=== PATIENT | male | born 1955 | race African-American/Black ===

== ENCOUNTER 2017-05-17 09:56 | Inpatient (IN) | payer MEDICAID ==
[~2017-05-17] VITALS: Ht 170.2 cm; Wt 85.7 kg
[2017-05-17 10:15] VITALS: BP 205/123
--- NOTE | 2017-05-17 10:36 | Diagnostic Imaging Report ---
Indications: Code stroke, slurred speech Technique: Continuous helical CT imaging of the brain was performed with nonionic exposure control on a Siemens sensation [address] scanner. Axial and coronal images were reconstructed at 5 mm slice thickness and interval. CTDI volume(s): 70 mGy Total DLP: 1333 mGy-cm Findings: Comparison: None Multiple small circumscribed foci of low attenuation are present in the bilateral basal ganglia regions. Most are chronic in appearance. A single lesion in the left globus pallidus is slightly less well-defined and slightly less hypoattenuating than the rest. Mild confluent low attenuation is present in the bilateral periventricular white matter. Ventricles, cisterns, and sulci are diffusely prominent. No evidence of mass or hemorrhage, mass effect, midline shift, hydrocephalus, or increased intracranial pressure. Bone window images are unremarkable. Visualized paranasal sinuses and mastoid air cells are clear. IMPRESSION: Bilateral basal ganglia region lacunar infarcts, most chronic in appearance. Single lesion on the left may be subacute. If clinically indicated, consider MRI for further evaluation.. Bilateral cerebral periventricular white matter low attenuation, nonspecific, likely chronic microvascular ischemic in nature Atrophy Critical results discussed with Dr. Anderson, physician, by telephone at time of this dictation The CT scanner at [facility] [place] is accredited by the [employer] and the scans are performed using protocols designed to limit radiation exposure to as low as reasonably achievable to attain images of sufficient resolution adequate for diagnostic evaluation.
[2017-05-17 10:39] VITALS: BP 175/98
[2017-05-17 10:40] LABS: BASOPHILS % (AUTO) 1.8 % (0.0-2.0); EOSINOPHILS % (AUTO) 1.9 % (0.0-3.0); LYMPHOCYTES % (AUTO) 26.3 % (20.0-45.0); MEAN CORPUSCULAR HEMOGLOBIN 30.7 PG (27.0-31.0); MEAN CORPUSCULAR HGB CONC 32.6 G/DL (32.0-36.0); MEAN CORPUSCULAR VOLUME 94 FL (80-99); MEAN PLATELET VOLUME 9.1 FL (6.5-10.1); MONOCYTES % (AUTO) 3.4 % (1.0-10.0); NEUTROPHILS % (AUTO) 66.6 % (45.0-75.0); PLATELET COUNT 328 K/UL (150-450); RED BLOOD COUNT 4.74 M/UL (4.70-6.10); RED CELL DISTRIBUTION WIDTH 11.6 % (11.6-14.8); WHITE BLOOD COUNT 10.7 K/UL (4.8-10.8)
[2017-05-17 10:54] LABS: PROTHROMBIN TIME 10.1 SEC (9.30-11.50); TROPONIN I < 0.30 ng/mL (<=0.30)
[2017-05-17] MEDS ORDERED: NKM (10:54)
[2017-05-17 10:55] LABS: ALANINE AMINOTRANSFERASE 8 U/L (3-41); ALBUMIN/GLOBULIN RATIO 1.3 (1.0-2.7); ALCOHOL 43 mg/dL; ANION GAP 11 (5-15); ASPARTATE AMINO TRANSFERASE 14 U/L (5-40); CARBON DIOXIDE 27 mEQ/L (20-30); CHLORIDE 100 mEQ/L (98-107); CHOLESTEROL 210 mg/dL (< 200); CHOLESTEROL/HDL RATIO 4.6 (3.3-4.4); CREATININE 1.1 mg/dL (0.7-1.2); GLOMERULAR FILTRATION RATE > 60 mL/min (>60); HEMOLYSIS 7; LDL CHOLESTEROL (CALC.) 132 mg/dL (60-99); POTASSIUM 3.9 mEQ/L (3.4-4.9); SODIUM 138 mEQ/L (135-145); TOTAL PROTEIN 7.4 g/dL (6.6-8.7)
[2017-05-17 11:05] LABS: CKMB 1.8 ng/mL (< 6.7)
[2017-05-17 11:50] VITALS: BP 182/91
[2017-05-17] MEDS ORDERED: Morphine Sulfate 2mg/ml Inj IVP PRN (12:00)
[2017-05-17] MEDS ORDERED: LORazepam Inj 2mg/ml 1ml IV PRN (12:00)
[2017-05-17] MEDS ORDERED: Miralax 17gm pkt ORAL PRN (12:00)
[2017-05-17] MEDS ORDERED: Nitroglycerin Subl 0.4mg tab (Bottle Of 25) SL PRN (12:00)
[2017-05-17] MEDS ORDERED: Promethazine/Codeine 5ml UD ORAL PRN (12:00)
[2017-05-17] MEDS ORDERED: Mylanta II UD 30ml ORAL PRN (12:00)
[2017-05-17] MEDS ORDERED: DuoNeb 0.5-3(2.5)mg/3ml neb HHN PRN (12:00)
--- NOTE | 2017-05-17 12:07 | Diagnostic Imaging Report ---
Indication: ] Technique: Single portable AP view of the chest. Findings: Comparison: None. Cardiac silhouette mildly enlarged. Linear densities left midlung, right lower lung. The bones and extra pulmonary soft tissues, cardiomediastinal silhouette, pulmonary vasculature, and pleural surfaces are unremarkable. IMPRESSION: Bilateral pulmonary subsegmental atelectasis versus scarring Cardiomegaly.
--- NOTE | 2017-05-17 12:31 | Neurology Progress Note ---
Objective Physical Exam Last Vital Signs Date Time Temp Pulse Resp B/P Pulse Ox O2 Delivery O2 Flow Rate FiO2 05/17/17 12:22 97.9 60 18 171/91 98 Room Air Laboratory Tests Test 05/17/17 10:30 White Blood Count 10.7 K/UL (4.8-10.8) Red Blood Count 4.74 M/UL (4.70-6.10) Hemoglobin 14.6 G/DL (14.2-18.0) Hematocrit 44.7 % (42.0-52.0) Mean Corpuscular Volume 94 FL (80-99) Mean Corpuscular Hemoglobin 30.7 PG (27.0-31.0) Mean Corpuscular Hemoglobin Concent 32.6 G/DL (32.0-36.0) Red Cell Distribution Width 11.6 % (11.6-14.8) Platelet Count 328 K/UL (150-450) Mean Platelet Volume 9.1 FL (6.5-10.1) Neutrophils (%) (Auto) 66.6 % (45.0-75.0) Lymphocytes (%) (Auto) 26.3 % (20.0-45.0) Monocytes (%) (Auto) 3.4 % (1.0-10.0) Eosinophils (%) (Auto) 1.9 % (0.0-3.0) Basophils (%) (Auto) 1.8 % (0.0-2.0) Prothrombin Time 10.1 SEC (9.30-11.50) Prothromb Time International Ratio 1.0 (0.9-1.1) Activated Partial Thromboplast Time 28 SEC (23-33) Sodium Level 138 mEQ/L (135-145) Potassium Level 3.9 mEQ/L (3.4-4.9) Chloride Level 100 mEQ/L (98-107) Carbon Dioxide Level 27 mEQ/L (20-30) Anion Gap 11 (5-15) Blood Urea Nitrogen 13 mg/dL (7-23) Creatinine 1.1 mg/dL (0.7-1.2) Estimat Glomerular Filtration Rate > 60 mL/min (>60) Glucose Level 129 mg/dL (74-106) H Calcium Level 9.0 mg/dL (8.6-10.2) Total Bilirubin 0.3 mg/dL (0.0-1.2) Aspartate Amino Transf (AST/SGOT) 14 U/L (5-40) Alanine Aminotransferase (ALT/SGPT) 8 U/L (3-41) Alkaline Phosphatase 58 U/L (40-129) Total Creatine Kinase 98 U/L (38-174) Creatine Kinase MB 1.8 ng/mL (< 6.7) Creatine Kinase MB Relative Index 1.8 Troponin I < 0.30 ng/mL (<=0.30) Total Protein 7.4 g/dL (6.6-8.7) Albumin 4.2 g/dL (3.5-5.2) Globulin 3.2 g/dL Albumin/Globulin Ratio 1.3 (1.0-2.7) Triglycerides Level 162 mg/dL (< 150) H Cholesterol Level 210 mg/dL (< 200) H LDL Cholesterol 132 mg/dL (60-99) H HDL Cholesterol 46 mg/dL (> 60) Cholesterol/HDL Ratio 4.6 (3.3-4.4) H Serum Alcohol 43 mg/dL Impression/Recommendations Problems: (1) Hypertensive urgency, malignant (2) s/p multiple lacunar strokes (3) r/o recent L MCA lacunar stroke (4) Hyperlipidemia Status: not improved Recommendations #[id number] TARSHA CORDOBA May 17, 2017 12:31
[2017-05-17] MEDS: D5 1/2NS 1,000 ML IV SCH (13:00)
[2017-05-17] MEDS ORDERED: Aspirin Baby 81mg NG SCH (13:00)
--- NOTE | 2017-05-17 13:51 | Emergency Room Report ---
History of Present Illness General Chief Complaint: Stroke Symptoms Source: Patient Present Illness HPI 61-year-old male presents ED for evaluation. Patient states that his blood pressure is high and he has a facial droop and slurred speech. States that symptoms started approximately 3 or 4 days ago. Patient states he is also intoxicated. Patient has history of hypertension but is not currently on medication. States he is stroke many years ago. Patient denies any drug use. Denies any chest pain or shortness of breath. No aggravating relieving factors. Denies any other associated symptoms Allergies: Coded Allergies: No Known Allergies (Unverified , 05/17/17) Patient History Past Medical History: HTN, CVA/TIA Past Surgical History: none Pertinent Family History: none Social History: Denies: alcohol use, drug use, smoking Immunizations: UTD Reviewed Nursing Documentation: PMH: Agreed, PSxH: Agreed Nursing Documentation-PMH Past Medical History: No History, Except For Hx Hypertension: Yes Hx Cerebrovascular Accident: Yes Review of Systems All Other Systems: negative except mentioned in HPI Physical Exam Vital Signs Date Time Temp Pulse Resp B/P Pulse Ox O2 Delivery O2 Flow Rate FiO2 05/17/17 09:59 97.9 59 18 205/123 98 Room Air Sp02 EP Interpretation: reviewed, normal General Appearance: no apparent distress, alert, GCS 15, non-toxic Head: normocephalic, atraumatic Eyes: bilateral eye PERRL, bilateral eye normal inspection ENT: hearing grossly normal, normal pharynx, no angioedema, normal voice Neck: full range of motion, supple/symm/no masses Respiratory: chest non-tender, lungs clear, normal breath sounds, speaking full sentences Cardiovascular #1: regular rate, rhythm, no edema Cardiovascular #2: 2+ carotid (R), 2+ carotid (L), 2+ radial (R), 2+ radial (L) , 2+ dorsalis pedis (R), 2+ dorsalis pedis (L) Gastrointestinal: normal bowel sounds, non tender, soft, non-distended, no guarding, no rebound Rectal: deferred Genitourinary: normal inspection, no CVA tenderness Musculoskeletal: back normal, gait/station normal, normal range of motion, non- tender Neurologic: alert, oriented x3, responsive, motor strength/tone normal, sensory intact, speech normal, facial droop, other - slurred speech Psychiatric: judgement/insight normal, memory normal, mood/affect normal, no suicidal/homicidal ideation Reflexes: 3+ bicep (R), 3+ bicep (L), 3+ tricep (R), 3+ tricep (L), 3+ knee (R) , 3+ knee (L) Skin: normal color, no rash, warm/dry, well hydrated Lymphatic: no adenopathy Medical Decision Making Diagnostic Impression: Primary Impression: CVA (cerebral vascular accident) Qualified Codes: I63.9 - Cerebral infarction, unspecified Additional Impressions: Hypertension Qualified Codes: I10 - Essential (primary) hypertension ETOH abuse ER Course Hospital Course 61-year-old M presents ED complaining of high BP, slurred speech with facial droop x 4 days Differential diagnoses include: ID/unstable angina, SVT/Vtach/AFib, CVA/TIA Clinical course Patient placed on stretcher. on urogynaecologist. After initial history and physical I ordered labs, EKG, chest x-ray, and CT head labs reviewed- electrolytes ok, troponins negative, no leukocytosis, Hb/Hct stable, ETOH 43 EKG - sinus bradycardia, no ischemic changes interpreted by me CT brain - no acute process noted Given aspirin in ED. given hydralazine for elevated BP Patient is not in therapeutic window for TPA. discussed with Dr. Villegas and he agreed to accept the patient to his service for further care and support I. I feel this is a highly complex case requiring extensive working including EKG/Rhythm strip, Xray/CT/US, Blood/urine lab work, repeat exams while in ED, and administration of strong opiates/narcotics for pain control, admission to hospital or close patient follow up. Diagnosis - CVA, hypertension, ETOH abuse admitted to telemetry in serious condition Labs Test 05/17/17 10:30 White Blood Count 10.7 K/UL (4.8-10.8) Red Blood Count 4.74 M/UL (4.70-6.10) Hemoglobin 14.6 G/DL (14.2-18.0) Hematocrit 44.7 % (42.0-52.0) Mean Corpuscular Volume 94 FL (80-99) Mean Corpuscular Hemoglobin 30.7 PG (27.0-31.0) Mean Corpuscular Hemoglobin Concent 32.6 G/DL (32.0-36.0) Red Cell Distribution Width 11.6 % (11.6-14.8) Platelet Count 328 K/UL (150-450) Mean Platelet Volume 9.1 FL (6.5-10.1) Neutrophils (%) (Auto) 66.6 % (45.0-75.0) Lymphocytes (%) (Auto) 26.3 % (20.0-45.0) Monocytes (%) (Auto) 3.4 % (1.0-10.0) Eosinophils (%) (Auto) 1.9 % (0.0-3.0) Basophils (%) (Auto) 1.8 % (0.0-2.0) Prothrombin Time 10.1 SEC (9.30-11.50) Prothromb Time International Ratio 1.0 (0.9-1.1) Activated Partial Thromboplast Time 28 SEC (23-33) Sodium Level 138 mEQ/L (135-145) Potassium Level 3.9 mEQ/L (3.4-4.9) Chloride Level 100 mEQ/L (98-107) Carbon Dioxide Level 27 mEQ/L (20-30) Anion Gap 11 (5-15) Blood Urea Nitrogen 13 mg/dL (7-23) Creatinine 1.1 mg/dL (0.7-1.2) Estimat Glomerular Filtration Rate > 60 mL/min (>60) Glucose Level 129 mg/dL (74-106) Calcium Level 9.0 mg/dL (8.6-10.2) Total Bilirubin 0.3 mg/dL (0.0-1.2) Aspartate Amino Transf (AST/SGOT) 14 U/L (5-40) Alanine Aminotransferase (ALT/SGPT) 8 U/L (3-41) Alkaline Phosphatase 58 U/L (40-129) Total Creatine Kinase 98 U/L (38-174) Creatine Kinase MB 1.8 ng/mL (< 6.7) Creatine Kinase MB Relative Index 1.8 Troponin I < 0.30 ng/mL (<=0.30) Total Protein 7.4 g/dL (6.6-8.7) Albumin 4.2 g/dL (3.5-5.2) Globulin 3.2 g/dL Albumin/Globulin Ratio 1.3 (1.0-2.7) Triglycerides Level 162 mg/dL (< 150) Cholesterol Level 210 mg/dL (< 200) LDL Cholesterol 132 mg/dL (60-99) HDL Cholesterol 46 mg/dL (> 60) Cholesterol/HDL Ratio 4.6 (3.3-4.4) Serum Alcohol 43 mg/dL EKG Diagnostic Results Rate: bradycardiac Rhythm: NSR ST Segments: no acute changes ASA given to the pt in ED: No Rhythm Strip Diag. Results EP Interpretation: yes Rhythm: NSR, no PVC's, no ectopy Chest X-Ray Diagnostic Results Chest X-Ray Ordered: Yes # of Views/Limited/Complete: 1 View Interpretation: no effusion, no pneumothorax, other - cardiomegaly. bilaeral atelectasis Indication: Chest Pain Impression: No acute disease Date Electronically Signed: May 17, 2017 Time Electronically Signed: 11:00 CT/MRI/US Diagnostic Results CT/MRI/US Diagnostic Results : Imaging Test Ordered: CT Head Impression bilateral basal ganglia luncar infarcts, mostly chronic, one subacute. Last Vital Signs Date Time Temp Pulse Resp B/P Pulse Ox O2 Delivery O2 Flow Rate FiO2 05/17/17 12:22 97.9 60 18 171/91 98 Room Air Status: improved Disposition: ADMITTED INPATIENT Condition: Serious Referrals: NOT CHOSEN IPA/,REFERRING (PCP) CUBA MARION M.D. May 17, 2017 13:51
--- NOTE | 2017-05-17 14:46 | Diagnostic Imaging Report ---
Indications: Cerebrovascular accident manifesting as slurred speech Technique: Sagittal and axial T1 weighted FLAIR, axial T2-weighted fat saturated fast spin echo propeller, T2-weighted FLAIR, T2*-weighted gradient echo, and diffusion sequences of the brain were performed without IV gadolinium administration. Findings: Comparison: Noncontrast CT brain performed earlier today 10 mm circumscribed ovoid focus of restricted diffusion is present in the right side of the erika at the level of the middle cerebellar peduncles. Associated mild T1 signal hypointensity, T2 signal hyperintensity. No associated susceptibility artifact on gradient echo images. Multiple small circumscribed foci of signal change/parenchymal loss are scattered throughout the bilateral basal ganglia and gann radiata regions. None demonstrates associated restricted diffusion. One lesion in the region of the posterior aspect of the left external capsule demonstrates a rim of susceptibility artifact on gradient echo images. No evidence of mass or acute hemorrhage, other signal abnormality, mass effect, midline shift, hydrocephalus, or increased intracranial pressure. No additional restricted diffusion. Central vascular flow voids are preserved. IMPRESSION: Acute lacunar infarct right side of erika Multiple bilateral basal ganglia and gann radiata small foci of parenchymal loss, most of which are compatible with old lacunar infarcts. Lesion in the posterior left external capsule compatible with chronic sequela of previous focal hemorrhage. Critical results discussed with Dr. Fernando, consulting neurologist, by telephone at time of this dictation
[2017-05-17 16:00] VITALS: BP 158/93
--- NOTE | 2017-05-17 16:02 | History and Physical ---
History of Present Illness General Date patient seen: May 17, 2017 Reason for Hospitalization: Stroke Symptoms Present Illness HPI 61-year-old male presents ED for evaluation of high blood pressure. He has a facial droop and slurred speech. States that symptoms started approximately 3 or 4 days ago prior to admission. He had stroke many years ago. Patient denies any drug use. Denies any chest pain or shortness of breath. He is admitted for possible CVA, and hypertensive emergency. Allergies: Coded Allergies: No Known Allergies (Unverified , 05/17/17) Medication History Scheduled No Known Medications* (NKM - No Known Medications*), 0 ., (Reported) Patient History Healthcare decision maker Resuscitation status Advanced Directive on File Past Medical/Surgical History Past Medical/Surgical History: (1) CVA (cerebral vascular accident) (2) Hypertension Review of Systems All Other Systems: negative except mentioned in HPI Physical Exam Lines, tubes and drains: peripheral HEENT: normocephalic, atraumatic Neck: non-tender, normal alignment, supple Respiratory/Chest: chest wall non-tender, lungs clear Cardiovascular/Chest: normal peripheral pulses, normal rate Abdomen: normal bowel sounds, non tender Genitourinary/Rectal: normal genital exam Extremities: normal range of motion, non-tender Skin Exam: normal pigmentation Last 24 Hour Vital Signs Date Time Temp Pulse Resp B/P Pulse Ox O2 Delivery O2 Flow Rate FiO2 05/17/17 12:22 97.9 60 18 171/91 98 Room Air 05/17/17 12:07 192/97 05/17/17 11:50 55 18 182/91 98 Room Air 05/17/17 10:39 77 18 175/98 98 Room Air 05/17/17 10:15 97.9 18 205/123 98 Room Air 05/17/17 09:59 97.9 59 18 205/123 98 Room Air Laboratory Tests Test 05/17/17 10:30 White Blood Count 10.7 K/UL (4.8-10.8) Red Blood Count 4.74 M/UL (4.70-6.10) Hemoglobin 14.6 G/DL (14.2-18.0) Hematocrit 44.7 % (42.0-52.0) Mean Corpuscular Volume 94 FL (80-99) Mean Corpuscular Hemoglobin 30.7 PG (27.0-31.0) Mean Corpuscular Hemoglobin Concent 32.6 G/DL (32.0-36.0) Red Cell Distribution Width 11.6 % (11.6-14.8) Platelet Count 328 K/UL (150-450) Mean Platelet Volume 9.1 FL (6.5-10.1) Neutrophils (%) (Auto) 66.6 % (45.0-75.0) Lymphocytes (%) (Auto) 26.3 % (20.0-45.0) Monocytes (%) (Auto) 3.4 % (1.0-10.0) Eosinophils (%) (Auto) 1.9 % (0.0-3.0) Basophils (%) (Auto) 1.8 % (0.0-2.0) Prothrombin Time 10.1 SEC (9.30-11.50) Prothromb Time International Ratio 1.0 (0.9-1.1) Activated Partial Thromboplast Time 28 SEC (23-33) Sodium Level 138 mEQ/L (135-145) Potassium Level 3.9 mEQ/L (3.4-4.9) Chloride Level 100 mEQ/L (98-107) Carbon Dioxide Level 27 mEQ/L (20-30) Anion Gap 11 (5-15) Blood Urea Nitrogen 13 mg/dL (7-23) Creatinine 1.1 mg/dL (0.7-1.2) Estimat Glomerular Filtration Rate > 60 mL/min (>60) Glucose Level 129 mg/dL (74-106) H Calcium Level 9.0 mg/dL (8.6-10.2) Total Bilirubin 0.3 mg/dL (0.0-1.2) Aspartate Amino Transf (AST/SGOT) 14 U/L (5-40) Alanine Aminotransferase (ALT/SGPT) 8 U/L (3-41) Alkaline Phosphatase 58 U/L (40-129) Total Creatine Kinase 98 U/L (38-174) Creatine Kinase MB 1.8 ng/mL (< 6.7) Creatine Kinase MB Relative Index 1.8 Troponin I < 0.30 ng/mL (<=0.30) Total Protein 7.4 g/dL (6.6-8.7) Albumin 4.2 g/dL (3.5-5.2) Globulin 3.2 g/dL Albumin/Globulin Ratio 1.3 (1.0-2.7) Triglycerides Level 162 mg/dL (< 150) H Cholesterol Level 210 mg/dL (< 200) H LDL Cholesterol 132 mg/dL (60-99) H HDL Cholesterol 46 mg/dL (> 60) Cholesterol/HDL Ratio 4.6 (3.3-4.4) H Phospholipids Level Pending Vitamin B12 Level 331 pg/mL (211-946) Serum Alcohol 43 mg/dL Height (Feet): 5 Height (Inches): 7.00 Weight (Pounds): 189 Medications Current Medications Medications (Trade) Dose Ordered Sig/Claudio Route PRN Reason Start Time Stop Time Status Last Admin Dose Admin Acetaminophen (Tylenol) 650 mg Q4H PRN ORAL fever 05/17/17 12:00 06/16/17 11:59 Al Hydroxide/Mg Hydroxide (Mylanta II) 30 ml Q6H PRN ORAL dyspepsia 05/17/17 12:00 06/16/17 11:59 Albuterol/ Ipratropium (DuoNeb 0.5-3(2.5)mg/3ml) 3 ml Q4H PRN HHN Shortness of Breath 05/17/17 12:00 05/22/17 11:59 Aspirin (ASA) 81 mg DAILY NG 05/17/17 13:00 06/16/17 12:59 05/17/17 13:00 Atorvastatin Calcium (Lipitor) 10 mg BEDTIME ORAL 05/17/17 21:00 06/16/17 20:59 Clonidine HCl (Catapres) 0.1 mg Q4H PRN ORAL For High Blood Pressure 05/17/17 12:00 06/16/17 11:59 Dextrose (Dextrose 50%) STAT PRN IV Hypoglycemia 05/17/17 12:00 06/16/17 11:59 Dextrose/Sodium Chloride (D5 0.45% NS) 1,000 ml @ 50 mls/hr Q20H IV 05/17/17 13:00 06/16/17 12:59 05/17/17 13:00 Heparin Sodium (Porcine) (Heparin 5000 units/ml) 5,000 units EVERY 12 HOURS SUBQ 05/17/17 21:00 06/16/17 20:59 Lorazepam (Ativan 2mg/ml 1ml) 0.5 mg Q4H PRN IV For Anxiety 05/17/17 12:00 05/24/17 11:59 Morphine Sulfate (Morphine Sulfate) 1 mg Q4H PRN IVP For Pain 7-10 05/17/17 12:00 05/24/17 11:59 Nitroglycerin (Ntg) 0.4 mg Q5M X 3 DOSES PRN SL Prn Chest Pain 05/17/17 12:00 06/16/17 11:59 Ondansetron HCl (Zofran) 4 mg Q6H PRN IVP Nausea & Vomiting 05/17/17 12:00 06/16/17 11:59 Polyethylene Glycol (Miralax) 17 gm HSPRN PRN ORAL Constipation 05/17/17 12:00 06/16/17 11:59 Promethazine HCl/ Codeine (Phenergan with Codeine) 5 ml Q4H PRN ORAL For Cough 05/17/17 12:00 06/16/17 11:59 Temazepam (Restoril) 15 mg HSPRN PRN ORAL Insomnia 05/17/17 12:00 05/24/17 11:59 Assessment/Plan Problem List: (1) CVA (cerebral vascular accident) ICD Codes: I63.9 - Cerebral infarction, unspecified SNOMED: 582072462 Qualifiers: Qualified Codes: I63.9 - Cerebral infarction, unspecified (2) Hypertensive urgency, malignant ICD Codes: I16.0 - Hypertensive urgency SNOMED: 679372098 (3) Stroke-like episode ICD Codes: I63.9 - Cerebral infarction, unspecified SNOMED: 466761747 Assessment/Plan telemetry monitoring control bp Neuro evaluation cardiac evaluation ZENIA TRUONG May 17, 2017 16:02
[2017-05-17 20:00] VITALS: BP 171/102
--- NOTE | 2017-05-17 21:00 | Consultation ---
DATE OF CONSULTATION: 05/17/2017 NEUROLOGICAL CONSULTATION CONSULTING PHYSICIAN: Anselmo Fernando M.D. REQUESTING PHYSICIAN: Gorge Villegas M.D. LOCATION: Emergency room. HISTORY OF PRESENT ILLNESS: The patient is a 61-year-old male seen in neurological consultation to evaluate the progressive neurological abnormalities in the last two to three days. The patient informed me that the over the last three days with no obvious reason, he noticed gait instability and weakness in the both lower extremities, generalized weakness, clumsy both hands, droopy left face, slurred speech which were fluctuating on and of, the patient become very concerns so decided to came to the emergency room. He was afebrile. His vital signs on admission included blood pressure of 205/123. The patient was started on treatment with hydralazine, albuterol, nitro, Zofran as needed, promethazine as needed, intravenous fluids, and Restoril. His blood pressure while under observation dropped down to 192/97. Initial assessment also included chest x-ray, bilateral pulmonary subsegmental atelectasis versus scarring, cardiomegaly. CAT scan of the brain revealed multiple foci of low attenuation bilateral basal ganglia, chronic in appearance with single lesion in the left globus pallidus, slightly less defined, subacute lacunar stroke. Lab work included serum alcohol of 43. CBC studies within normal limits. Coagulation panel normal. Chemistry panel was unremarkable except blood sugar 129, elevated lipid panel with cholesterol 210, LDL 132. Since admission until present, there were no further changes in his status, the patient now informs me that at age of 47 he had acute stroke. He was taken to [facility]. MRI of the brain revealed small stroke, but this resulted in the limping to the right side, somewhat slurred speech and facial droop which later improved. The patient also indicate that accidentally about six months ago he was detected to have high blood pressure. For some reason, no treatment was given to him, he had another measurement of blood pressure recently, also was elevated. The patient came to this facility with no treatment receiving. 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 SOCIAL HISTORY: The patient is homeless but stays often with his mother who is chronically ill or stays with his girlfriend or other people. He is a smoker one to two cigars per day. He likes beers 3 to 4 daily but denies being drunk. Denies drug abuse. The patient indicated he would like to claim social security for disability. REVIEW OF SYSTEMS: Generalized weakness but denies headache, dizziness. Denies swallowing issues. No aches and pains in his upper or mid lower back. No urine or bowel incontinence. Denies chest pain or palpitations. No respiratory problems. The patient remained with generalized weakness and left facial droop, somewhat slurred speech gait, wobbly gait. PHYSICAL EXAMINATION: GENERAL: A well-developed, well-nourished man, not in acute distress. VITAL SIGNS: Blood pressure 182/97, heart rate of 55, temperature 97.9, afebrile. HEENT: Head normocephalic. No evidence of trauma. Eyes, ears, and throat are clear. NECK: Supple. No meningeal signs. MUSCULOSKELETAL: Unremarkable. There is no deformities. Peripheral pulses 1+ symmetric. MENTAL STATUS EXAMINATION: The patient is alert and oriented x3. His speech is fluent with no evidence of aphasia or apraxia with slightly slurred speech. CRANIAL NERVE II: Pupils both responding to light and accommodation. Extraocular movement intact. No nystagmus. CRANIAL NERVE V: Normal corneal responses. CRANIAL NERVE VII: Droop left nasolabial fold. CRANIAL NERVE VIII: Grossly normal hearing. CRANIAL NERVES IX THROUGH XII: Tongue is in midline. Symmetric palate elevation. MOTOR EXAMINATION: Revealed slight increased tone both lower extremities. Strength 5/5 all extremities. Deep reflexes 1+ both biceps, triceps, and brachioradialis but 3+ both knee jerks, ankle jerks, plantar response is mute. SENSORY EXAMINATION: Normal to pinprick and light touch. Gait is unstable but with turns was somewhat wobbly. IMPRESSION: 1. Hypertensive emergency. 2. Extensive ischemic cerebrovascular disease with multiple lacunar strokes, rule out subacute left middle cerebral artery distribution stroke. 3. Hyperlipidemia. 4. Social alcohol use. 5. Nicotine dependency. RECOMMENDATION: 1. Carotid duplex study. 2. MRI of the brain. 3. Coagulation panel. 4. B12, folate, thyroid function. 5. Start on aspirin 81 mg daily. 6. Start on Lipitor 10 mg daily. 7. Get PT/OT, speech therapy assessment. 8. A 2D echocardiogram. Thank you for allowing me to see this interesting patient in neurological consultation. Anselmo Fernando M.D. DR: Cricket JOB#: [id number] CC:
[2017-05-17] MEDS: Heparin 5000 units/ml inj SUBQ SCH (21:13)
--- NOTE | 2017-05-17 22:30 | Consultation ---
DATE OF CONSULTATION: 05/17/2017 CARDIOLOGY CONSULTATION CONSULTING PHYSICIAN: Galo Feng M.D. REFERRING PHYSICIAN: Gorge Villegas M.D. REASON FOR CONSULTATION: Management of accelerated hypertension. HISTORY OF PRESENT ILLNESS: The patient is a very pleasant 61-year-old black Bulgarian, who presents to the emergency department for evaluation of facial droop and slurred speech. Apparently, the patient's blood pressure was elevated. He has a history of prior stroke that caused the facial asymmetry as well as facial droop in the right face and right hemiparesis. At this time, the patient started to feel numbness creeping up from the right knee towards the hip. He also noticed some slurring of the speech. Initial blood pressure on arrival to the emergency department 205/123 mmHg and heart rate was 59. The patient is admitted to telemetry for further evaluation and management of malignant hypertension. The patient denies any chest pain or shortness of breath. Denies any headache, lightheadedness, or dizziness. PAST MEDICAL HISTORY: Hypertension, CVA/TIA, right hemiparesis, as well as noncompliance with medication. PAST SURGICAL HISTORY: None. MEDICATIONS: List of medication, the patient is currently on no medication. ALLERGIES: No known drug allergies. SOCIAL HISTORY: Denies any alcohol, tobacco, or illicit drug use. FAMILY HISTORY: No premature coronary artery disease in first-degree relatives. REVIEW OF SYSTEMS: HEENT: Denies any headache, diplopia, or blurred vision. Constitutional: Denies any fever, chills, night sweats, or weight loss. Cardiovascular: Denies any chest pain, shortness breath, PND, orthopnea, or leg swelling. Pulmonary: Denies any cough, hemoptysis, or wheezing. Gastrointestinal: Denies any nausea, vomiting, diarrhea, constipation, abdominal pain, or GI bleed. Genitourinary: Denies any hematuria, dysuria, or incontinence. Neurology: Some slurring of speech. There is numbness in the right leg above the knee and residual numbness below the right knee. PHYSICAL EXAMINATION: VITAL SIGNS: Blood pressure was 205/123, respiration of 18, pulse of 59, and temperature of 97.9 degrees Fahrenheit. GENERAL: The patient is a very unfortunate 61-year-old gentleman, in no apparent respiratory distress. Alert, awake, and oriented x4. HEENT: Atraumatic and normocephalic. Anicteric. Pupils are equal, round, and reactive to light and accommodation. Extraocular muscles intact. NECK: JVP is less than 5 cm. No carotid bruit. Carotid upstrokes 2+ bilaterally. CARDIOVASCULAR: Normal S1 and loud S2. No murmurs, gallops, or rubs. PMI is at fourth intercostal space at the midclavicular line. LUNGS: Clear to auscultation bilaterally. ABDOMEN: Soft, nontender, and nondistended. No hepatosplenomegaly. Positive bowel sounds. EXTREMITIES: No evidence of edema, clubbing, or cyanosis. LABORATORY AND DIAGNOSTIC FINDINGS: WBC 10.7, hemoglobin 14.6, hematocrit of 44.7, and platelet count is 328,000. Sodium 138, potassium 3.9, chloride 100, bicarbonate 27, BUN of 13, creatinine 1.1, and glucose 129. Calcium is 9.0. Troponin I less than 0.3. Triglyceride 162, total cholesterol is 210, LDL is 132, and HDL of 46. INR is 1.0. Serum alcohol is 43. A 12-lead electrocardiogram shows sinus bradycardia with a rate of 55 with septal wall infarct, age indeterminate. No acute ST and T-wave abnormalities. Chest x-ray shows bilateral pulmonary subsegmental atelectasis versus scarring with presence of cardiomegaly in particular left ventricular prominence. CT of the head showed bilateral basal ganglia region lacunar infarcts, chronic in appearance. Single lesion on the left may be is subacute. MRI of head shows acute lacunar infarct on right side of erika, multiple bilateral basilar ganglion gann radiata small foci of parenchymal loss compatible with old lacunar infarcts, and lesion in the posterior left external capsule, chronic sequelae of previous focal hemorrhage. ASSESSMENT AND PLAN: 1. Hypertensive emergency. The patient requires medication to keep the blood pressure around 140 to 160 mmHg. Rapid slow loading blood pressure may have deleterious effect on the cerebral blood flow. It is quite hard to achieve the aforementioned blood pressure using oral agents. I would have to start the patient on a very low dose oral medication with tight monitoring of blood pressure on telemetry unit. The latest blood pressure at this time is 158/93 mmHg, which is relatively acceptable. Most of the patient's with hypertensive emergency require an intensive care unit. The patient is currently asymptomatic. There is no evidence of encephalopathy. 2. Noncompliance with the blood pressure medication. 3. Prior history of hemorrhagic cerebrovascular accident and cerebellar infarct. A 2D echocardiography has shown normal left ventricular ejection fraction at 60%. A 12-lead electrocardiogram does not suggest embolic source from the heart. We would like to obtain a lipid panel and the coronary artery disease risk stratification in this patient. I would like to thank, Dr. Villegas, for allowing me to participate in the care of this patient. Galo Feng M.D. DR: MARIANA JOB#: [id number] CC:
[2017-05-18] VITALS (7 sets, daily range): BP systolic 140–167; BP diastolic 79–102
[2017-05-18 08:05] LABS: BASOPHILS % (AUTO) 1.2 % (0.0-2.0); EOSINOPHILS % (AUTO) 2.6 % (0.0-3.0); LYMPHOCYTES % (AUTO) 29.5 % (20.0-45.0); MEAN CORPUSCULAR HEMOGLOBIN 32.6 PG (27.0-31.0); MEAN CORPUSCULAR HGB CONC 35.6 G/DL (32.0-36.0); MEAN CORPUSCULAR VOLUME 92 FL (80-99); MEAN PLATELET VOLUME 8.9 FL (6.5-10.1); MONOCYTES % (AUTO) 5.8 % (1.0-10.0); NEUTROPHILS % (AUTO) 60.9 % (45.0-75.0); PLATELET COUNT 320 K/UL (150-450); RED BLOOD COUNT 4.79 M/UL (4.70-6.10); RED CELL DISTRIBUTION WIDTH 11.6 % (11.6-14.8); WHITE BLOOD COUNT 13.4 K/UL (4.8-10.8)
[2017-05-18 08:11] LABS: PROTHROMBIN TIME 10.4 SEC (9.30-11.50)
[2017-05-18 08:19] LABS: ALANINE AMINOTRANSFERASE 11 U/L (3-41); ALBUMIN/GLOBULIN RATIO 1.1 (1.0-2.7); ANION GAP 16 (5-15); ASPARTATE AMINO TRANSFERASE 15 U/L (5-40); CALCIUM 8.7 mg/dL (8.6-10.2); CARBON DIOXIDE 24 mEQ/L (20-30); CHLORIDE 101 mEQ/L (98-107); CHOLESTEROL 201 mg/dL (< 200); CHOLESTEROL/HDL RATIO 4.9 (3.3-4.4); CREATININE 1.1 mg/dL (0.7-1.2); GLOMERULAR FILTRATION RATE > 60 mL/min (>60); HEMOLYSIS 6; LDL CHOLESTEROL (CALC.) 116 mg/dL (60-99); POTASSIUM 4.1 mEQ/L (3.4-4.9); SODIUM 141 mEQ/L (135-145); TOTAL PROTEIN 7.2 g/dL (6.6-8.7)
[2017-05-18] MEDS: Aspirin Baby 81mg ORAL SCH (08:58)
[2017-05-18] MEDS: Heparin 5000 units/ml inj SUBQ SCH ×2 (08:59→20:47)
[2017-05-18] MEDS: D5 1/2NS 1,000 ML IV SCH (09:00)
--- NOTE | 2017-05-18 11:18 | Pulmonology Progress Note ---
Assessment/Plan Problems: (1) Hypertensive urgency, malignant (2) CVA (cerebral vascular accident) (3) Acute CVA (cerebrovascular accident) Assessment/Plan improving no deficits start oral hypertensive agents dc probably tomorrow Subjective ROS Limited/Unobtainable: No Constitutional: Reports: no symptoms HEENT: Repors: no symptoms Respiratory: Reports: no symptoms Allergies: Coded Allergies: No Known Allergies (Unverified , 05/17/17) Objective Last 24 Hour Vital Signs Date Time Temp Pulse Resp B/P Pulse Ox O2 Delivery O2 Flow Rate FiO2 05/18/17 08:28 97.7 58 18 158/102 97 Room Air 05/18/17 08:00 57 05/18/17 06:52 167/95 05/18/17 06:45 97.7 56 18 167/95 95 Room Air 05/18/17 04:00 56 05/18/17 04:00 97.0 58 18 156/89 99 Room Air 05/18/17 00:00 96.9 70 20 158/79 99 Room Air 05/18/17 00:00 57 05/17/17 20:00 97.7 69 20 171/102 95 Room Air 05/17/17 20:00 63 05/17/17 16:00 80 05/17/17 16:00 97.5 61 18 158/93 98 Room Air 05/17/17 12:22 97.9 60 18 171/91 98 Room Air 05/17/17 12:07 192/97 05/17/17 11:50 55 18 182/91 98 Room Air Intake and Output 05/17/17 05/18/17 19:00 07:00 Intake Total 700 ml 240 ml Output Total 1200 ml Balance -500 ml 240 ml Intake Oral 400 ml 240 ml IV Total 300 ml Output Urine Total 1200 ml # Voids 2 2 HEENT: normocephalic, atraumatic Respiratory/Chest: chest wall non-tender, lungs clear Cardiovascular: normal peripheral pulses, normal rate Abdomen: normal bowel sounds, soft, non tender Genitourinary: normal external genitalia Skin: no rash Neurologic/Psychiatric: bilingual sales assistant II-XII grossly normal, abnormal gait Laboratory Tests 05/18/17 07:00: White Blood Count 13.4H, Red Blood Count 4.79, Hemoglobin 15.6, Hematocrit 43.9 , Mean Corpuscular Volume 92, Mean Corpuscular Hemoglobin 32.6H, Mean Corpuscular Hemoglobin Concent 35.6, Red Cell Distribution Width 11.6, Platelet Count 320, Mean Platelet Volume 8.9, Neutrophils (%) (Auto) 60.9, Lymphocytes (% ) (Auto) 29.5, Monocytes (%) (Auto) 5.8, Eosinophils (%) (Auto) 2.6, Basophils ( %) (Auto) 1.2, Prothrombin Time 10.4, Prothromb Time International Ratio 1.0, Activated Partial Thromboplast Time 29, Sodium Level 141, Potassium Level 4.1, Chloride Level 101, Carbon Dioxide Level 24, Anion Gap 16H, Blood Urea Nitrogen 11, Creatinine 1.1, Estimat Glomerular Filtration Rate > 60, Glucose Level 101, Calcium Level 8.7, Total Bilirubin 0.7, Aspartate Amino Transf (AST/SGOT) 15, Alanine Aminotransferase (ALT/SGPT) 11, Alkaline Phosphatase 58, Total Protein 7.2, Albumin 3.8, Globulin 3.4, Albumin/Globulin Ratio 1.1, Triglycerides Level 218H, Cholesterol Level 201H, LDL Cholesterol 116H, HDL Cholesterol 41, Cholesterol/HDL Ratio 4.9H, Thyroid Stimulating Hormone (TSH) 2.530 Current Medications Medications (Trade) Dose Ordered Sig/Claudio Route PRN Reason Start Time Stop Time Status Last Admin Dose Admin Acetaminophen (Tylenol) 650 mg Q4H PRN ORAL fever 05/17/17 12:00 06/16/17 11:59 Al Hydroxide/Mg Hydroxide (Mylanta II) 30 ml Q6H PRN ORAL dyspepsia 05/17/17 12:00 06/16/17 11:59 Albuterol/ Ipratropium (DuoNeb 0.5-3(2.5)mg/3ml) 3 ml Q4H PRN HHN Shortness of Breath 05/17/17 12:00 05/22/17 11:59 Aspirin (ASA) 81 mg DAILY ORAL 05/18/17 09:00 06/17/17 08:59 05/18/17 08:58 Atorvastatin Calcium (Lipitor) 10 mg BEDTIME ORAL 05/17/17 21:00 06/16/17 20:59 05/17/17 21:12 Clonidine HCl (Catapres) 0.1 mg Q4H PRN ORAL For High Blood Pressure 05/17/17 12:00 06/16/17 11:59 05/18/17 06:52 Dextrose (Dextrose 50%) STAT PRN IV Hypoglycemia 05/17/17 12:00 06/16/17 11:59 Dextrose/Sodium Chloride (D5 0.45% NS) 1,000 ml @ 50 mls/hr Q20H IV 05/17/17 13:00 06/16/17 12:59 05/18/17 09:00 Heparin Sodium (Porcine) (Heparin 5000 units/ml) 5,000 units EVERY 12 HOURS SUBQ 05/17/17 21:00 06/16/17 20:59 05/18/17 08:59 Lorazepam (Ativan 2mg/ml 1ml) 0.5 mg Q4H PRN IV For Anxiety 05/17/17 12:00 05/24/17 11:59 Morphine Sulfate (Morphine Sulfate) 1 mg Q4H PRN IVP For Pain 7-10 05/17/17 12:00 05/24/17 11:59 Nitroglycerin (Ntg) 0.4 mg Q5M X 3 DOSES PRN SL Prn Chest Pain 05/17/17 12:00 06/16/17 11:59 Ondansetron HCl (Zofran) 4 mg Q6H PRN IVP Nausea & Vomiting 05/17/17 12:00 06/16/17 11:59 Polyethylene Glycol (Miralax) 17 gm HSPRN PRN ORAL Constipation 05/17/17 12:00 06/16/17 11:59 Promethazine HCl/ Codeine (Phenergan with Codeine) 5 ml Q4H PRN ORAL For Cough 05/17/17 12:00 06/16/17 11:59 Temazepam (Restoril) 15 mg HSPRN PRN ORAL Insomnia 05/17/17 12:00 05/24/17 11:59 ZENIA TRUONG May 18, 2017 11:18
[2017-05-18] MEDS: Lisinopril 20mg tab ORAL SCH (11:39)
--- NOTE | 2017-05-18 15:10 | Cardiology Report ---
APPROVED REPORT EKG Measurement Heart [id number] DC [id number] [id number] Sinus bradycardia Septal infarct, age undetermined Abnormal ECG
--- NOTE | 2017-05-18 15:18 | Neurology Progress Note ---
Interim History Interim History ROS Limited/Unobtainable: No Complaints: feel better Events: stable Objective Physical Exam Last Vital Signs Date Time Temp Pulse Resp B/P Pulse Ox O2 Delivery O2 Flow Rate FiO2 05/18/17 12:38 57 05/18/17 11:52 97.7 18 143/98 96 Room Air Laboratory Tests Test 05/18/17 07:00 05/18/17 11:00 White Blood Count 13.4 K/UL (4.8-10.8) H Red Blood Count 4.79 M/UL (4.70-6.10) Hemoglobin 15.6 G/DL (14.2-18.0) Hematocrit 43.9 % (42.0-52.0) Mean Corpuscular Volume 92 FL (80-99) Mean Corpuscular Hemoglobin 32.6 PG (27.0-31.0) H Mean Corpuscular Hemoglobin Concent 35.6 G/DL (32.0-36.0) Red Cell Distribution Width 11.6 % (11.6-14.8) Platelet Count 320 K/UL (150-450) Mean Platelet Volume 8.9 FL (6.5-10.1) Neutrophils (%) (Auto) 60.9 % (45.0-75.0) Lymphocytes (%) (Auto) 29.5 % (20.0-45.0) Monocytes (%) (Auto) 5.8 % (1.0-10.0) Eosinophils (%) (Auto) 2.6 % (0.0-3.0) Basophils (%) (Auto) 1.2 % (0.0-2.0) Prothrombin Time 10.4 SEC (9.30-11.50) Prothromb Time International Ratio 1.0 (0.9-1.1) Activated Partial Thromboplast Time 29 SEC (23-33) Sodium Level 141 mEQ/L (135-145) Potassium Level 4.1 mEQ/L (3.4-4.9) Chloride Level 101 mEQ/L (98-107) Carbon Dioxide Level 24 mEQ/L (20-30) Anion Gap 16 (5-15) H Blood Urea Nitrogen 11 mg/dL (7-23) Creatinine 1.1 mg/dL (0.7-1.2) Estimat Glomerular Filtration Rate > 60 mL/min (>60) Glucose Level 101 mg/dL (74-106) Calcium Level 8.7 mg/dL (8.6-10.2) Total Bilirubin 0.7 mg/dL (0.0-1.2) Aspartate Amino Transf (AST/SGOT) 15 U/L (5-40) Alanine Aminotransferase (ALT/SGPT) 11 U/L (3-41) Alkaline Phosphatase 58 U/L (40-129) Total Protein 7.2 g/dL (6.6-8.7) Albumin 3.8 g/dL (3.5-5.2) Globulin 3.4 g/dL Albumin/Globulin Ratio 1.1 (1.0-2.7) Triglycerides Level 218 mg/dL (< 150) H Cholesterol Level 201 mg/dL (< 200) H LDL Cholesterol 116 mg/dL (60-99) H HDL Cholesterol 41 mg/dL (> 60) Cholesterol/HDL Ratio 4.9 (3.3-4.4) H Thyroid Stimulating Hormone (TSH) 2.530 uIU/mL (0.300-4.500) Ammonia 48 umol/L (16-60) General: well developed, well nourished, no acute distress Head: normocophalic, atraumatic Neck: no rigidity Neurologic Exam Mental Status: awake, alert, oriented x4, normal cognition, normal recent memory, normal remote memory, preserved visuospatial function Speech: normal speech, no dysarthia Language: normal language, no aphasia Cranial Nerve II: fundus normal, visual bliss, no papilledema Cranial Nerves III, IV, : PERRLA, EOMI, pupils Cranial Nerve V: normal facial sensations, temporales function normal, masseters function normal, pterygoids function normal Cranial Nerve VII: no facial asymmetry, normal facial expressions, other - mild L droop Cranial Nerve VIII: normal hearing, no nystagmus Cranial Nerve IX: normal palate elevation, gag response Cranial Nerve X: no voice hoarseness Cranial Nerve XI: SCM symmetric, trapezii function normal Cranial Nerve XII: tongue midline, no tongue atrophy/fasciculations Motor System: normal muscle tone, strength 5/5, no involuntary movement, no muscle wasting Sensory: normal pinprick, normal light touch, normal position sense, normal graphesthesia Coordination: normal finger to nose bilaterally, normal heel to person bilaterally, negative Romberg test Deep Tendon Reflexes: 2+ ankle (L), 2+ ankle (R), 2+ bicep (L), 2+ bicep (R), 2 + brachioradialis (L), 2+ brachioradialis (R), 2+ knee (L), 2+ knee (R), 2+ tricep (L), 2+ tricep (R) Reflexes: flexor plantar (L), flexor plantar (R) Stance: normal Gait: stable, normal regular, heel + toe gait Impression/Recommendations Problems: (1) acute lacunar pontine stroke, stable (2) Hypertensive urgency, malignant (3) s/p multiple lacunar strokes (4) r/o recent L MCA lacunar stroke (5) Hyperlipidemia Assessment & Plan: asa/statins / cont present rx Status: stable, not improved Recommendations #[id number] TARSHA CORDOBA May 18, 2017 15:18
--- NOTE | 2017-05-18 20:51 | Cardiology Progress Note ---
Assessment/Plan Assessment/Plan 1. Hypertensive emergency. Blood pressure acceptable, continue lisinopril and amlodipine. History non-compliance with the blood pressure medication. 2. Prior history of hemorrhagic cerebrovascular accident and cerebral infarct. 3. Hyperlipidemia, require at least moderate potency statins, increase atorvastatin to 40mg po qhs. Subjective Subjective Sinus rhythm at 60 Objective Last 24 Hour Vital Signs Date Time Temp Pulse Resp B/P Pulse Ox O2 Delivery O2 Flow Rate FiO2 05/18/17 20:00 97.7 63 20 147/96 97 Room Air 05/18/17 16:31 60 05/18/17 15:58 97.9 55 18 140/89 97 Room Air 05/18/17 12:38 57 05/18/17 11:52 97.7 52 18 143/98 96 Room Air 05/18/17 11:39 143/98 05/18/17 11:37 52 143/68 05/18/17 08:28 97.7 58 18 158/102 97 Room Air 05/18/17 08:00 57 05/18/17 06:52 167/95 05/18/17 06:45 97.7 56 18 167/95 95 Room Air 05/18/17 04:00 56 05/18/17 04:00 97.0 58 18 156/89 99 Room Air 05/18/17 00:00 96.9 70 20 158/79 99 Room Air 05/18/17 00:00 57 Intake and Output 05/17/17 05/18/17 19:00 07:00 Intake Total 700 ml 240 ml Output Total 1200 ml Balance -500 ml 240 ml Intake Oral 400 ml 240 ml IV Total 300 ml Output Urine Total 1200 ml # Voids 2 2 2D Echo: LVEF 60%, Mild LVH, Mild LVH, RVSP 18 mmHg Laboratory Tests Test 05/18/17 07:00 05/18/17 11:00 White Blood Count 13.4 K/UL (4.8-10.8) H Red Blood Count 4.79 M/UL (4.70-6.10) Hemoglobin 15.6 G/DL (14.2-18.0) Hematocrit 43.9 % (42.0-52.0) Mean Corpuscular Volume 92 FL (80-99) Mean Corpuscular Hemoglobin 32.6 PG (27.0-31.0) H Mean Corpuscular Hemoglobin Concent 35.6 G/DL (32.0-36.0) Red Cell Distribution Width 11.6 % (11.6-14.8) Platelet Count 320 K/UL (150-450) Mean Platelet Volume 8.9 FL (6.5-10.1) Neutrophils (%) (Auto) 60.9 % (45.0-75.0) Lymphocytes (%) (Auto) 29.5 % (20.0-45.0) Monocytes (%) (Auto) 5.8 % (1.0-10.0) Eosinophils (%) (Auto) 2.6 % (0.0-3.0) Basophils (%) (Auto) 1.2 % (0.0-2.0) Prothrombin Time 10.4 SEC (9.30-11.50) Prothromb Time International Ratio 1.0 (0.9-1.1) Activated Partial Thromboplast Time 29 SEC (23-33) Sodium Level 141 mEQ/L (135-145) Potassium Level 4.1 mEQ/L (3.4-4.9) Chloride Level 101 mEQ/L (98-107) Carbon Dioxide Level 24 mEQ/L (20-30) Anion Gap 16 (5-15) H Blood Urea Nitrogen 11 mg/dL (7-23) Creatinine 1.1 mg/dL (0.7-1.2) Estimat Glomerular Filtration Rate > 60 mL/min (>60) Glucose Level 101 mg/dL (74-106) Calcium Level 8.7 mg/dL (8.6-10.2) Total Bilirubin 0.7 mg/dL (0.0-1.2) Aspartate Amino Transf (AST/SGOT) 15 U/L (5-40) Alanine Aminotransferase (ALT/SGPT) 11 U/L (3-41) Alkaline Phosphatase 58 U/L (40-129) Total Protein 7.2 g/dL (6.6-8.7) Albumin 3.8 g/dL (3.5-5.2) Globulin 3.4 g/dL Albumin/Globulin Ratio 1.1 (1.0-2.7) Triglycerides Level 218 mg/dL (< 150) H Cholesterol Level 201 mg/dL (< 200) H LDL Cholesterol 116 mg/dL (60-99) H HDL Cholesterol 41 mg/dL (> 60) Cholesterol/HDL Ratio 4.9 (3.3-4.4) H Thyroid Stimulating Hormone (TSH) 2.530 uIU/mL (0.300-4.500) Ammonia 48 umol/L (16-60) Objective HEENT: Atraumatic and normocephalic. Anicteric. Pupils are equal, round, and reactive to light and accommodation. Extraocular muscles intact. NECK: JVP is less than 5 cm. No carotid bruit. Carotid upstrokes 2+ bilaterally. CARDIOVASCULAR: Normal S1 and loud S2. No murmurs, gallops, or rubs. PMI is at fourth intercostal space at the midclavicular line. LUNGS: Clear to auscultation bilaterally. ABDOMEN: Soft, nontender, and nondistended. No hepatosplenomegaly. Positive bowel sounds. EXTREMITIES: No evidence of edema, clubbing, or cyanosis. CAROL BAHENA May 18, 2017 20:51
[2017-05-19] VITALS: BP 157/92
[2017-05-19 04:00] VITALS: BP 138/87
[2017-05-19] MEDS: D5 1/2NS 1,000 ML IV SCH (05:09)
--- NOTE | 2017-05-19 07:49 | Cardiology Report ---
APPROVED REPORT EXAM: Two-dimensional and M-mode echocardiogram with Doppler and color Doppler. INDICATION Left Ventricular Function M-Mode DIMENSIONS IVSd1.3 (0.7-1.1cm)Left Atrium (MM)4.0 (1.6-4.0cm) LVDd4.9 (3.5-5.6cm)Aortic Root2.4 (2.0-3.7cm) PWd1.3 (0.7-1.1cm)Aortic Cusp Exc.1.5 (1.5-2.0cm) LVDs2.2 (2.5-4.0cm) PWs2.3 cm Technically difficult study due to poor acoustic windows. Study quality precludes accurate assessment of regional wall motion. Normal left ventricular chamber size, systolic function and wall motion. Left ventricular ejection fraction estimated to be 60 %. Mild left ventricular hypertrophy. No evidence of pericardial fat or effusion. All other cardiac chamber sizes are within normal limits. Focal aortic valve sclerosis with adequate cusp excursion. Thickened mitral valve leaflets with normal excursion. Mitral annulus and aortic root calcification. Pulmonic valve not well visualized. Normal tricuspid valve structure. IVC is normal in size with physiologic collapse. A color flow and spectral Doppler study was performed and revealed: No aortic regurgitation. Trace mitral regurgitation. Mitral diastolic velocities suggest reduced left ventricular relaxation (Grade I). Trace tricuspid regurgitation. Tricuspid systolic velocities suggests peak right ventricular systolic pressure of 18 mmHg. No pulmonic regurgitation present.
[2017-05-19 08:33] VITALS: BP 149/89
[2017-05-19] MEDS: Aspirin Baby 81mg ORAL SCH (09:12)
[2017-05-19] MEDS: Lisinopril 20mg tab ORAL SCH (09:13)
[2017-05-19] MEDS: Heparin 5000 units/ml inj SUBQ SCH (09:15)
[2017-05-19 11:29] VITALS: BP 137/91
[2017-05-19] MEDS ORDERED: ASPIRIN81 MG ORAL (13:19)
[2017-05-19] MEDS ORDERED: LIPITOR10 MG ORAL (13:19)
[2017-05-19] MEDS ORDERED: NORVASC5 MG ORAL (13:19)
[2017-05-19] MEDS ORDERED: LISINOPRIL20 MG ORAL (13:19)
[2017-05-19] MEDS ORDERED: D5 1/2NS 1000ml IV ONE (15:44)
--- NOTE | 2017-05-20 11:14 | Discharge Summary ---
Discharge Summary Hospital Course Date of Admission May 17, 2017 at 10:49 Date of Discharge May 19, 2017 at 15:45 Admitting Diagnosis CVA HPI Dewayne Valdovinos is a 61 year old male who was admitted on May 17, 2017 at 10:49 for Cerebral Vascular Attack Hospital Course [id number] Discharge Discharge Disposition Patient was discharged to Home (01) Discharge Diagnoses: Daniella Mock NP May 20, 2017 11:14
--- NOTE | 2017-05-20 18:15 | Discharge Summary 2 SIG ---
DATE OF ADMISSION: 05/17/2017 DATE OF DISCHARGE: 05/19/2017 CONSULTANTS: 1. Anselmo Fernando M.D. 2. Galo Feng M.D. BRIEF HOSPITAL COURSE: The patient is a 61-year-old male, who presented to ED for evaluation of high blood pressure. He had facial droop and slurred speech. Symptoms started three days prior to admission. On evaluation at ED, CT of the brain showed no acute process. Blood pressure was elevated to systolic 200 and was given intravenous hydralazine. EKG was in sinus bradycardia. Chest x-ray done showed no effusion and no pneumothorax with bilateral pulmonary atelectasis. He was admitted to telemetry for possible CVA and hypertensive emergency and was followed by Dr. Fernando. He was given aspirin 81 mg and was started on Lipitor. Dr. Feng was consulted and recommend to keep blood pressure around 140s to 160. An echocardiogram done showed ejection fraction of 60%. Brain MRI showed acute lacunar infarct on the right side of the erika with multiple basal ganglia and gann radiata, small foci of parenchymal loss, compatible with old lacunar infarcts. EKG did not suggest embolic source emanating from the heart. Atorvastatin was increased to 40 mg nightly. He was given physical therapy, occupational therapy, and speech therapy. He was eventually discharged home, to follow up with PMD as an outpatient. FINAL DIAGNOSES: 1. Acute CVA. 2. Hypertensive emergency/hypertensive urgency. 3. Multiple old lacunar strokes. 4. Hyperlipidemia. Gorge Villegas M.D. I have been assigned to dictate discharge summary on this account and I was not involved in the patient's management. Daniella Mock N.P. DR: JERSEY JOB#: [id number] CC: LISETTE
== END 2017-05-19 15:45 | disposition home or self-care (01) | DRG 45 ==
LOC: EMR 10:24 → 2E 10:49 → EDBEDREQ 11:43
DX: I63.9 Cerebral infarction, unspecified (principal); I16.0 Hypertensive urgency; Z91.19 Patient's noncompliance with other medical treatment and regimen; E78.5 Hyperlipidemia, unspecified; Z86.73 Personal history of transient ischemic attack (TIA), and cerebral infarction without residual deficits; F17.200 Nicotine dependence, unspecified, uncomplicated; Z91.14 Patient's other noncompliance with medication regimen
CPT/HCPCS: 36415; 70450; 70551; 71010; 80053; 80061; 80329; 82140; 82550; 82553; 82607; 84311; 84443; 84484; 85025; 85610; 85730; 93005; 93306; 93880; 93970